=== PATIENT | female | born 1975 | race African-American/Black ===

== ENCOUNTER 2020-01-14 14:11 | Emergency (ER) | payer MEDICAID, OTHER ==
--- NOTE | 2020-01-14 14:17 | EDM.PDOC ---
ED HPI GENERAL MEDICAL PROBLEM - General Stated Complaint: R SIDED PAIN Time Seen by Provider: 01/14/20 14:17 Source of Information: Reports: Patient, RN Notes Reviewed History Limitations: Reports: No Limitations - History of Present Illness INITIAL COMMENTS - FREE TEXT/NARRATIVE: 44 yo F who presented to the ER with right sided abdominal pain that started suddenly and got progressively worsen. Rates pain as 10/10 in severity and has been constant with no obvious aggravating or relieving factors. Endorsed associated vomiting -- vomited x 2 - non bilious, non bloody vomitus. No diarrhea. Denied any fever, cough, SOB. Denied any urinary symptoms. No vaginal bleeding. Presented due to worsening symptoms Onset: Today right lower abdomen Pain Score (Numeric/FACES): 10 - Related Data Allergies Allergy/AdvReac Type Severity Reaction Status Date / Time peanuts Allergy Shortness Uncoded 01/14/20 14:30 of Breath Home Meds: Home Meds . [Unable to Verify Home Med List] 01/14/20 [History] ED ROS GENERAL - Review of Systems Review Of Systems: See Below Constitutional: Reports: No Symptoms HEENT: Reports: No Symptoms Respiratory: Reports: No Symptoms Cardiovascular: Reports: No Symptoms Endocrine: Reports: No Symptoms GI/Abdominal: Reports: Abdominal Pain : Reports: Flank Pain Musculoskeletal: Reports: No Symptoms Skin: Reports: No Symptoms Neurological: Reports: No Symptoms Psychiatric: Reports: No Symptoms Hematologic/Lymphatic: Reports: No Symptoms Immunologic: Reports: No Symptoms ED EXAM, GI/ABD - Physical Exam Exam: See Below Exam Limited By: No Limitations General Appearance: Alert, WD/WN, No Apparent Distress Eyes: Bilateral: Normal Appearance, EOMI Ears: Normal External Exam, Normal Canal, Hearing Grossly Normal, Normal TMs Nose: Normal Inspection, Normal Mucosa Throat/Mouth: Normal Inspection, Normal Lips, Normal Oropharynx Head: Atraumatic, Normocephalic Neck: Normal Inspection, Supple, Non-Tender Respiratory/Chest: No Respiratory Distress, Lungs Clear Cardiovascular: Normal Peripheral Pulses, Regular Rate, Rhythm, No Edema, No Gallop, No JVD, No Murmur, No Rub GI/Abdominal Exam: Normal Bowel Sounds, Soft, Non-Tender, No Organomegaly, No Distention, No Abnormal Bruit, Tender Extremities: Normal Inspection, Normal Range of Motion Neurological: Alert, Oriented, CN II-XII Intact, Normal Cognition Psychiatric: Normal Affect Skin Exam: Warm, Intact Lymphatic: No Adenopathy Course - Vital Signs Last Recorded V/S: Last Vital Signs Temp 35.9 C L 01/14/20 14:15 Pulse 62 01/14/20 16:05 Resp 18 01/14/20 16:05 BP 213/116 H 01/14/20 16:05 Pulse Ox 95 01/14/20 16:05 - Orders/Labs/Meds Orders: Active Orders 24 hr Category Date Time Status Abdomen Pelvis w Cont [CT] Stat Exams 01/14/20 14:29 Taken Sodium Chloride 0.9% [Normal Saline] 1,000 ml Med 01/14/20 16:30 Active IV .BOLUS Medication Orders Sodium Chloride (Normal Saline) 1,000 mls @ 250 mls/hr IV .BOLUS ONE Stop: 01/14/20 20:29 Last Admin: 01/14/20 16:35 Dose: 250 mls/hr Labs: Laboratory Tests 01/14/20 01/14/20 01/14/20 Range/Units 14:35 14:35 14:35 WBC 11.3 (4.5-12.0) X10-3/uL RBC 4.35 (3.23-5.20) x10(6)uL Hgb 12.5 (11.5-15.5) g/dL Hct 40.4 (30.0-51.3) % MCV 92.8 (80-96) fL MCH 28.7 (27.7-33.6) pg MCHC 30.9 L (32.2-35.4) g/dL RDW 15.2 (11.5-15.5) % Plt Count 218 (125-369) X10(3)uL MPV 8.9 (7.4-10.4) fL Neut % (Auto) 62.8 (46-82) % Lymph % (Auto) 31.2 (13-37) % [place] % (Auto) 4.9 (4-12) % Eos % (Auto) 1 (1.0-5.0) % Baso % (Auto) 1 (0-2) % Neut # (Auto) 7.0 (1.6-8.3) # Lymph # (Auto) 3.5 (0.6-5.0) # [place] # (Auto) 0.6 (0.0-1.3) # Eos # (Auto) 0.1 (0.0-0.8) # Baso # (Auto) 0.1 (0.0-0.2) # Sodium 142 (135-145) mmol/L Potassium 3.7 (3.5-5.3) mmol/L Chloride 106 (100-110) mmol/L Carbon Dioxide 24 (21-32) mmol/L BUN 10 (7-18) mg/dL Creatinine 1.0 (0.55-1.02) mg/dL Est Cr Clr Drug Dosing TNP Estimated GFR (MDRD) > 60 (>60) BUN/Creatinine Ratio 10.0 (9-20) Glucose 107 (80-116) mg/dL Calcium 9.4 (8.6-10.2) mg/dL Total Bilirubin 0.5 (0.1-1.3) mg/dL AST 19 (5-25) IU/L ALT 21 (12-36) U/L Alkaline Phosphatase 91 (56-112) IU/L C-Reactive Protein (0.5-0.9) mg/dL Total Protein 7.4 (6.0-8.0) g/dL Albumin 3.9 (3.5-5.2) g/dL Globulin 3.5 g/dL Albumin/Globulin Ratio 1.1 Lipase 106 (73-393) U/L Urine Color (YELLOW) Urine Appearance (CLEAR) Urine pH (5.0-6.5) Ur Specific [place] (1.010-1.025) Urine Protein (NEGATIVE) mg/dL Urine Glucose (UA) (NORMAL) mg/dL Urine Ketones (NEGATIVE) mg/dL Urine Occult Blood (NEGATIVE) Urine Nitrite (NEGATIVE) Urine Bilirubin (NEGATIVE) Urine Urobilinogen (NEGATIVE) mg/dL Ur Leukocyte Esterase (NEGATIVE) Urine RBC (0-5) Urine WBC (0-5) Ur Squamous Epith Cells (NS,R,O) Urine Bacteria (NS) Urine HCG, Qual (NEGATIVE) 01/14/20 01/14/20 01/14/20 Range/Units 14:35 15:44 15:44 WBC (4.5-12.0) X10-3/uL RBC (3.23-5.20) x10(6)uL Hgb (11.5-15.5) g/dL Hct (30.0-51.3) % MCV (80-96) fL MCH (27.7-33.6) pg MCHC (32.2-35.4) g/dL RDW (11.5-15.5) % Plt Count (125-369) X10(3)uL MPV (7.4-10.4) fL Neut % (Auto) (46-82) % Lymph % (Auto) (13-37) % [place] % (Auto) (4-12) % Eos % (Auto) (1.0-5.0) % Baso % (Auto) (0-2) % Neut # (Auto) (1.6-8.3) # Lymph # (Auto) (0.6-5.0) # [place] # (Auto) (0.0-1.3) # Eos # (Auto) (0.0-0.8) # Baso # (Auto) (0.0-0.2) # Sodium (135-145) mmol/L Potassium (3.5-5.3) mmol/L Chloride (100-110) mmol/L Carbon Dioxide (21-32) mmol/L BUN (7-18) mg/dL Creatinine (0.55-1.02) mg/dL Est Cr Clr Drug Dosing Estimated GFR (MDRD) (>60) BUN/Creatinine Ratio (9-20) Glucose (80-116) mg/dL Calcium (8.6-10.2) mg/dL Total Bilirubin (0.1-1.3) mg/dL AST (5-25) IU/L ALT (12-36) U/L Alkaline Phosphatase (56-112) IU/L C-Reactive Protein < 0.2 L (0.5-0.9) mg/dL Total Protein (6.0-8.0) g/dL Albumin (3.5-5.2) g/dL Globulin g/dL Albumin/Globulin Ratio Lipase (73-393) U/L Urine Color Yellow (YELLOW) Urine Appearance Slightly cloudy (CLEAR) Urine pH 6.5 (5.0-6.5) Ur Specific [place] 1.010 (1.010-1.025) Urine Protein Negative (NEGATIVE) mg/dL Urine Glucose (UA) Normal (NORMAL) mg/dL Urine Ketones 15 H (NEGATIVE) mg/dL Urine Occult Blood Large H (NEGATIVE) Urine Nitrite Positive H (NEGATIVE) Urine Bilirubin Negative (NEGATIVE) Urine Urobilinogen Normal (NEGATIVE) mg/dL Ur Leukocyte Esterase Negative (NEGATIVE) Urine RBC 20-30 H (0-5) Urine WBC 0-5 (0-5) Ur Squamous Epith Cells Few H (NS,R,O) Urine Bacteria Moderate H (NS) Urine HCG, Qual Negative (NEGATIVE) Meds: Medications Generic Name Dose Route Start Last Admin Trade Name Freq PRN Reason Stop Dose Admin Sodium Chloride 1,000 mls @ 250 mls/hr 01/14/20 16:30 01/14/20 16:35 Normal Saline IV 01/14/20 20:29 250 mls/hr .BOLUS ONE Administration Discontinued Medications Generic Name Dose Route Start Last Admin Trade Name Freq PRN Reason Stop Dose Admin Hydromorphone HCl 1 mg 01/14/20 15:35 01/14/20 15:43 Dilaudid IVPUSH 01/14/20 15:36 1 mg ONETIME ONE Administration Sodium Chloride 1,000 mls @ 500 mls/hr 01/14/20 14:27 01/14/20 14:35 Normal Saline IV 01/14/20 16:26 500 mls/hr .BOLUS ONE Administration Ceftriaxone Sodium 1 gm/ 50 mls @ 200 mls/hr 01/14/20 16:15 01/14/20 16:36 Sodium Chloride IV 01/14/20 16:29 200 mls/hr ONETIME ONE Administration Iopamidol 100 ml 01/14/20 14:45 01/14/20 15:06 Isovue-370 (76%) IV 01/14/20 14:46 75 ml . DIRECTED ONE Administration Ketorolac Tromethamine 30 mg 01/14/20 15:47 01/14/20 15:53 Toradol IVPUSH 01/14/20 15:48 30 mg ONETIME ONE Administration Morphine Sulfate 2 mg 01/14/20 14:29 01/14/20 14:31 Morphine IVPUSH 01/14/20 14:30 2 mg ONETIME ONE Administration Morphine Sulfate 4 mg 01/14/20 14:47 01/14/20 14:53 Morphine IVPUSH 01/14/20 14:48 4 mg ONETIME ONE Administration Ondansetron HCl 4 mg 01/14/20 14:28 01/14/20 14:32 Zofran IVPUSH 01/14/20 14:29 4 mg ONETIME ONE Administration Tamsulosin HCl 0.4 mg 01/14/20 15:47 01/14/20 15:53 Flomax PO 01/14/20 15:48 0.4 mg ONETIME ONE Administration Departure - Departure Time of Disposition: 17:05 Disposition: DC/Tfer to Other 70 Condition: Good Clinical Impression: Kidney stone on right side, Flank pain, UTI (urinary tract infection), Ovarian mass, right - Discharge Information Sepsis Event Note - Focused Exam Vital Signs: Vital Signs Temp Pulse Resp BP Pulse Ox 01/14/20 16:05 62 18 213/116 H 95 01/14/20 15:53 73 17 207/129 H 95 01/14/20 14:15 35.9 C L 75 17 228/119 H 96 Date Exam was Performed: 01/14/20 Time Exam was Performed: 17:03 ED Communication - Discussed Case With (1) Discussed Case With (1): Other Person/s Notified (1): Dr. Loera Person/s Notified (2): Dr. Downey - My Orders Last 24 Hours: My Active Orders 01/14/20 14:29 Abdomen Pelvis w Cont [CT] Stat 01/14/20 16:30 Sodium Chloride 0.9% [Normal Saline] 1,000 ml IV .BOLUS - Assessment/Plan Last 24 Hours: My Active Orders 01/14/20 14:29 Abdomen Pelvis w Cont [CT] Stat 01/14/20 16:30 Sodium Chloride 0.9% [Normal Saline] 1,000 ml IV .BOLUS
[2020-01-14] MEDS ORDERED: Sodium Chloride 0.9% 1,000 ML IV ONE ×2 (14:27→16:30)
[2020-01-14] MEDS ORDERED: Ondansetron 4 MG/2 ML SDV IVPUSH ONE (14:28)
[2020-01-14] MEDS ORDERED: Morphine 2 MG/ML Syringe IVPUSH ONE (14:29)
[2020-01-14] MEDS ORDERED: Iopamidol 755 Mg/ML 100 ML Bottle IV ONE (14:45)
[2020-01-14] MEDS ORDERED: HYDROmorphone 2 MG/ML SDV IVPUSH ONE (15:35)
[2020-01-14] MEDS ORDERED: Tamsulosin 0.4 MG Cap.ER PO ONE (15:47)
[2020-01-14] MEDS ORDERED: Ketorolac 30 MG/ML SDV IVPUSH ONE (15:47)
[2020-01-14] MEDS ORDERED: cefTRIAXone 1 GM in Sodium Chloride 0.9% 50 ML IV ONE (16:15)
== END 2020-01-14 17:20 | disposition other institution (70) ==
LOC: FB.ED 14:11
DX: N20.2 Calculus of kidney with calculus of ureter (principal); N39.0 Urinary tract infection, site not specified; N83.9 Noninflammatory disorder of ovary, fallopian tube and broad ligament, unspecified; Z91.010 Allergy to peanuts
CPT/HCPCS: 36415; 74177; 80053; 81001; 81025; 83690; 85025; 86140; 96361; 96374; 96375; 99285; A9270; J0696; J1170; J1885; J2270; J2405; J7030; J7050; Q9967

== ENCOUNTER 2025-03-30 08:16 | Emergency (ER) | payer MEDICARE, MEDICAID | END 2025-03-30 09:48 | disposition home or self-care (01) | LOC: FB.ED 08:16 | DX: L72.3 Sebaceous cyst (principal); L08.9 Local infection of the skin and subcutaneous tissue, unspecified; I10 Essential (primary) hypertension; E78.00 Pure hypercholesterolemia, unspecified; J44.89 Other specified chronic obstructive pulmonary disease; Z87.891 Personal history of nicotine dependence; Z91.048 Other nonmedicinal substance allergy status; Z79.899 Other long term (current) drug therapy | CPT/HCPCS: 99283 ==